=== PATIENT | female | born 1960 | race Hispanic/Latino ===

== ENCOUNTER 2018-06-17 17:06 | Inpatient (IN) | payer BC ==
[2018-06-17 18:20] LABS: #Eosinphils 0.1 thou/uL (0.0-0.7); #Lymphocytes 1.3 thou/uL (1.20-3.40); #Monocytes 0.4 thou/uL (0.11-0.59); #Neutrophils 3.1 thou/uL (1.40-6.50); %Basophils 0.3 % (0.0-1.0); %Eosinophils 2.1 % (0.0-10.0); %Monocytes 7.2 % (0.0-10.0); %Neutrophils 64.4 % (42.0-75.0); Hemoglobin 12.2 g/dL (12.0-16.0); Mean Corpuscular Hemoglobin 31.4 pg (27.0-31.0); Mean Corpuscular Volume 92.4 fL (78.0-98.0); Mean Platelet Volume 7.1 fL (7.4-10.4); Platelet Count 229 thou/uL (130-400); RBC Distribution Width 11.4 % (11.5-14.5); Red Blood Cell (RBC) Count 3.88 mill/uL (4.20-5.40); White Blood Cell (WBC) Count 4.9 thou/uL (4.8-10.8)
[2018-06-17 18:41] LABS: ALT (SGPT) 24 U/L (8-55); AST (SGOT) 24 U/L (5-34); Albumin 4.3 g/dL (3.5-5.0); Alkaline Phosphatase 115 U/L (40-150); Anion Gap 12 mmol/L (10-20); BUN (Urea Nitrogen) 14 mg/dL (9.8-20.1); Bilirubin, Total 0.4 mg/dL (0.2-1.2); Calc. Creatinine Clearance 0 mL/min (70-130); Calcium 9.6 mg/dL (7.8-10.44); Carbon Dioxide 25 mmol/L (22-29); Chloride 106 mmol/L (98-107); Estimated GFR-MDRD 82; Globulin 3.4 g/dL (2.4-3.5); Glucose 101 mg/dL (70-105); Potassium 4.1 mmol/L (3.5-5.1); Protein, Total 7.7 g/dL (6.0-8.3); Sodium 139 mmol/L (136-145)
--- NOTE | 2018-06-17 18:59 | RAD ---
TWO VIEWS RIGHT FEMUR: 06/17/18 COMPARISON: None. HISTORY: Fall with right hip pain. FINDINGS: Two views of the right femur shows no evidence of acute fracture or dislocation. No soft tissue swell ing is seen. No degenerative changes are present. IMPRESSION: No evidence of acute osseous abnormality. POS: [facility]
--- NOTE | 2018-06-17 19:01 | RAD ---
SINGLE VIEW OF THE CHEST: 06/17/18 COMPARISON: None. HISTORY: Right upper leg fracture. Chest pain . FINDINGS: Single view of the chest shows a normal sized cardiomediastinal silhouette. There is no evidence of c onsolidation, mass, or pleural effusion. The bones are unremarkable. IMPRESSION: No evidence of acute cardiopulmonary disease. POS: [facility]
[2018-06-17] MEDS ORDERED: Acetaminophen 325 MG TAB PO PRN (20:57)
[2018-06-17] MEDS: Atorvastatin Calcium 10 MG TAB PO SCH (21:05)
[2018-06-18] MEDS ORDERED: Ondansetron ODT 4 MG TAB PO PRN (00:11)
[2018-06-18] MEDS ORDERED: Ondansetron PF 4 MG/2 ML Vial IVP PRN (00:11)
[2018-06-18] MEDS ORDERED: Senokot S 8.6-50 MG TAB PO PRN (00:42)
[2018-06-18] MEDS ORDERED: Bisacodyl 5 MG TAB PO PRN (00:42)
[2018-06-18] MEDS ORDERED: Calcium Carbonate 500 MG ChewTAB PO PRN (00:42)
[2018-06-18 05:13] LABS: #Eosinphils 0.1 thou/uL (0.0-0.7); #Lymphocytes 1.7 thou/uL (1.20-3.40); #Monocytes 0.4 thou/uL (0.11-0.59); #Neutrophils 2.9 thou/uL (1.40-6.50); %Basophils 0.8 % (0.0-1.0); %Eosinophils 2.8 % (0.0-10.0); %Monocytes 7.4 % (0.0-10.0); Hemoglobin 12.7 g/dL (12.0-16.0); Mean Corpuscular HGB CONC 33.7 g/dL (32.0-36.0); Mean Corpuscular Hemoglobin 31.3 pg (27.0-31.0); Mean Platelet Volume 7.2 fL (7.4-10.4); Platelet Count 223 thou/uL (130-400); RBC Distribution Width 11.6 % (11.5-14.5); Red Blood Cell (RBC) Count 4.07 mill/uL (4.20-5.40); White Blood Cell (WBC) Count 5.1 thou/uL (4.8-10.8)
[2018-06-18] MEDS: Levothyroxine Sodium 100 MCG TAB PO SCH (05:40)
[2018-06-18 05:46] LABS: Anion Gap 13 mmol/L (10-20); BUN (Urea Nitrogen) 17 mg/dL (9.8-20.1); Calc. Creatinine Clearance 88 mL/min (70-130); Calcium 9.7 mg/dL (7.8-10.44); Carbon Dioxide 25 mmol/L (22-29); Chloride 107 mmol/L (98-107); Estimated GFR-MDRD 78; Glucose 97 mg/dL (70-105); Sodium 141 mmol/L (136-145)
[2018-06-18] MEDS ORDERED: Famotidine/PF 20 mg/2ml Vial SLOW IVP SCH (09:00)
--- NOTE | 2018-06-18 10:11 | HP ---
CHIEF COMPLAINT: Right hip pain and x-ray finding of lytic lesion in the setting of breast cancer history in the past. HISTORY OF PRESENT ILLNESS: The patient is a 57-year-old female, who fell recently on her right hip and sustained contusion of this hip. She presented to [facility] Emergency Room for evaluation of her hip pain. X-rays showed no fracture, but there was some lytic lesion to the right femur. Her oncologist was consulted and he requested to admit her to the hospital for workup of her possible metastatic disease. Orthopedic surgeon was called, Dr. Connor, who is consulted and Dr. Perez is consulted. At this point, the patient does not have any pain. She does not have much complaints to offer. Her surrogate decision maker is Brent Guerra, her , and her doctor is Dr. Canales, PCP. PAST MEDICAL HISTORY: Positive for, 1. Breast cancer in 2002 with lumpectomy and subsequent chemo and radiation therapy. 2. Hypothyroidism. 3. Hyperlipidemia. PAST SURGICAL HISTORY: Left mastectomy. SOCIAL HISTORY: She denies any alcohol intake, cigarette smoking, or illicit drug use. FAMILY HISTORY: Father when kids were very young and they do not know much about his . Mother had high blood pressure and she passed last year when she was 87 years old. ALLERGIES: NONE. CURRENT MEDICATIONS: 1. Atorvastatin 80 mg once a day. 2. Levothyroxine 100 mcg every morning. REVIEW OF SYSTEMS: CONSTITUTIONAL: Negative for fever and chills. EYES: Negative for eye pain and eye discharge. ENT: Negative for nasal congestion and epistaxis. CARDIOVASCULAR: Negative for chest pain and palpitations. RESPIRATORY: Negative for shortness of breath and cough. GASTROINTESTINAL: Negative for nausea and vomiting. MUSCULOSKELETAL: Positive for right hip pain on palpation. SKIN: Negative for erythema and rash. ENDOCRINE: Negative for polydipsia and polyuria. HEMOLYMPHATIC: Negative for easy bruising and clotting abnormalities. PSYCHIATRIC: Negative for suicidal and homicidal ideations. PHYSICAL EXAMINATION: VITAL SIGNS: Blood pressure is 138/72, pulse is 61, temperature is 98.0, respiratory rate is 16, O2 saturation is 97% on room air. HEENT: Her head is atraumatic and normocephalic. Eyes are PERRLA. Sclerae are nonicteric. Oral mucosa is moist. NECK: Supple. No lymphadenopathy. Thyroid is not palpable. LUNGS: Clear. HEART: S1, S2 normal. No S3. No S4. No any murmur. ABDOMEN: Soft, nontender, nondistended. Bowel sounds are present. No organomegaly. EXTREMITIES: No clubbing, cyanosis, or edema. NEUROLOGICAL EXAMINATION: She is alert and oriented x4. There is no any motor or sensory deficits present. Cranial nerves are intact. LABORATORY DATA: White count of 5.1, hemoglobin of 12.7, hematocrit 37.8, platelet count is 223,000. Normal chemistry. Chest x-ray did not show any acute abnormalities. This was personally reviewed by me, and x-ray of the femur did not show any abnormalities. IMPRESSION: 1. Right hip pain with radiographic finding of lytic lesion in the proximal femur in the setting of a cancer patient diagnosed with breast cancer in 2002, status post lumpectomy, and subsequent chemo and radiation therapy. 2. Hypothyroidism. 3. Hyperlipidemia. PLAN: Admission for observation. Condition is fair. Activity bedrest and bathroom privileges. IV Hep-Lock. CT of the chest, abdomen and pelvis with contrast. Consultants, Dr. Connor, Orthopedic Surgery and Dr. Perez, Oncology consultation. Continue home medications. DVT prophylaxis and the patient should be able to go home in the next 24 hours. Job ID: [id number]
[2018-06-18] MEDS: Famotidine 20 MG TAB PO SCH ×2 (10:30→20:39)
--- NOTE | 2018-06-18 11:50 | CT ---
CT CHEST WITH CONTRAST: CT ABDOMEN WITH CONTRAST: CT PELVIS WITH CONTRAST: HISTORY: Malignant process. Fall. Pain. FINDINGS: There is a large right lower lobe lung mass with central necrosis, measuring 2.9 x 3.8 x 5.7 cm. The re is post destructive pneumonitis in the right lower lobe. No pericardial effusion. No mediastinal adenopathy. No axillary adenopathy. There is an abnormal lytic focus within the T11 vertebral body, with extension along the posterior wa ll of the vertebral body, as well as extension along the lamina and pedicles. Abnormal lytic focus w ithin the right ilium. There are abnormal lytic foci throughout the sacrum, on the right, with a pat hologic fracture through the right sacrum, zone 2, without significant displacement. There are no dilated loops of large or small bowel. No free intraperitoneal gas or fluid. The liver, gallbladder, spleen, pancreas, and right adrenal gland are unremarkable. No hydronephrosi s. No abnormal renal enhancing mass. IMPRESSION: 1. Large right lower lobe mass, concerning for primary lung carcinoma. There is osseous metastatic disease involving the right ilium and sacrum, with a subtle pathologic fracture of the right sacrum, zone 2 of S1. 2. Metastatic focal involvement of the T11 vertebral body with anterior epidural extension. MRI may be helpful to evaluate for the extent of the epidural disease. 2. Osseous metastatic disease involving the posterior elements of T5 and T6, with likely epidural ex tension of tumor. The sound physician credit union manager was paged. CODE CR POS: [facility]
--- NOTE | 2018-06-18 14:49 | CON ---
DATE OF CONSULTATION: 06/18/2018 CHIEF COMPLAINT: Right hip pain. HISTORY OF PRESENT ILLNESS: Ms. Guerra is a 57-year-old female, who has a history of breast cancer 15 years ago. She was treated at that time with mastectomy, radiation, and chemotherapy. She has done very well since then with no recurrence of her cancer; however, she began having pain in her thigh and then fell on [address]. Since that time, she has had more severe pain and has been unable to ambulate and put pressure on her leg. She was seen in the [facility] by Dr. Perez and referred over to the emergency department. X-rays of her femur have shown a lytic lesion with possible pathologic fracture. PAST MEDICAL HISTORY: 1. Breast cancer in 2002 with lumpectomy and chemo and radiation therapy. 2. Hypothyroidism. 3. Hyperlipidemia. PAST SURGICAL HISTORY: Left breast lumpectomy. SOCIAL HISTORY: The patient denies tobacco, alcohol, or drug use. FAMILY MEDICAL HISTORY: Noncontributory. ALLERGIES: NONE. MEDICATIONS: 1. Atorvastatin. 2. Levothyroxine. REVIEW OF SYSTEMS: Positive for right leg pain when she ambulates, otherwise negative 10-point review of systems. IMAGING DATA: X-rays of the right femur demonstrate a lytic lesion of the proximal one-third of the femur eroding the cortex greater than 50% on the lateral aspect. IMPRESSION: Lytic lesion of femur in a patient with history of breast cancer in 2002. PHYSICAL EXAMINATION: VITAL SIGNS: Stable. Blood pressure is 138/70, pulse is 65, and temperature is 98.0. GENERAL: She is alert, sitting upright, in no apparent distress. RESPIRATORY: Breathing comfortably. HEENT: Normocephalic and atraumatic. ABDOMEN: Soft, nontender, and nondistended. MUSCULOSKELETAL: The patient's right leg has some pain with motion, although, minimal. No swelling. No ecchymosis. Neurovascularly intact. PLAN: At this point, the patient will have workup for her lytic lesion including CT scan of the chest, abdomen, and pelvis. It is most likely that the patient has metastatic breast cancer given her history. If this continues to be the case after imaging and laboratory studies, I would plan for intramedullary nail of the femur to restore strength to the femur and allow immobilization and prevent fracture. She would likely need radiation treatment of her lytic lesion as well. I will proceed with this tomorrow if everyone agrees that this represents a metastatic lesion rather than a primary bone tumor, which would be very unlikely. Job ID: [id number]
--- NOTE | 2018-06-18 15:26 | NM ---
RADIONUCLIDE BONE SCAN: Date: 06/18/18 HISTORY: Femoral bone lesion. Metastatic cancer. FINDINGS: Heterogeneously increased uptake is present along the lateral aspect of the proximal right femoral sh aft. Abnormal areas of uptake also involve the right side of the S1 vertebral level and the right sup raacetabular pelvis. Prominent increased uptake is present at the T11 vertebral level. There is also abnormally increased uptake involving the T5 and T6 vertebra and the right side of the T7 vertebra, p ossibly the base of the right 7th rib. Focus of activity overlies the left zygomatic arch. IMPRESSION: Osseous metastatic disease involving the thoracic spine, pelvis, left hip, and left zygomatic arch. POS: [facility]
[2018-06-18] MEDS: Atorvastatin Calcium 10 MG TAB PO SCH (20:40)
[2018-06-19] MEDS: Levothyroxine Sodium 100 MCG TAB PO SCH (05:33)
[2018-06-19] MEDS ORDERED: CEFAZOLIN 2 GM/50 ML BAG ONE (06:29)
[2018-06-19] MEDS ORDERED: CEFAZOLIN 2 GM/50 ML-DEXTROSE 2 GM in Premix Bag 1 BAG IVPB SCH (07:30)
[2018-06-19] MEDS ORDERED: CEFAZOLIN/Water 2 GM/20 ML SYRINGE SLOW IVP SCH ×2 (07:30→11:45)
[2018-06-19] MEDS ORDERED: Fentanyl 100 MCG/2 ML VIAL ONE ×4 (07:53→10:06)
--- NOTE | 2018-06-19 10:19 | RAD ---
INTRAOPERATIVE FLUOROSCOPIC RIGHT FEMUR SERIES 5 VIEWS PROVIDED: INDICATION: Intraoperative imaging for intramedullary nail placement of right femur. FINDINGS/IMPRESSION: Segmental imaging of the right femur reveals placement of intramedullary maria teresa with proximal and distal screw fixation. Detail is limited on the provided views. POS: [facility]
[2018-06-19] MEDS: Famotidine 20 MG TAB PO SCH ×2 (11:27→20:43)
[2018-06-19] MEDS ORDERED: HYDROcodone/Acetaminophen 5/325 mg Tablet PO PRN (12:01)
[2018-06-19] MEDS ORDERED: HYDROcodone/Acetaminophen 10/325 mg Tablet PO PRN (12:02)
[2018-06-19] MEDS ORDERED: Morphine 4 MG/ML VIAL SLOW IVP PRN (12:03)
[2018-06-19] MEDS: HYDROcodone/Acetaminophen 10/325 mg Tablet PO PRN ×2 (12:39→16:28)
[2018-06-19] MEDS: CEFAZOLIN 2 GM/50 ML-DEXTROSE 2 GM in Premix Bag 1 BAG IVPB SCH ×2 (12:39→20:42)
--- NOTE | 2018-06-19 15:27 | OP ---
DATE OF PROCEDURE: 06/19/2018 PROCEDURES PERFORMED: 1. Right femur intramedullary nail. 2. Right femoral metastatic lesion biopsy. PREOPERATIVE DIAGNOSIS: Right femoral metastatic lesion with pathologic fracture. POSTOPERATIVE DIAGNOSIS: Right femoral metastatic lesion with pathologic fracture. COMPLICATIONS: None. ESTIMATED BLOOD LOSS: 150 mL. ANESTHESIA: General. IMPLANTS: Synthes 380 mm x 10 mm antegrade femoral nail with Crosslock screws. INDICATIONS FOR PROCEDURE: Ms. Guerra is a 57-year-old female, who has a remote history of breast cancer. She fell recently and a pathologic lesion and fracture was found in her femur. Upon further workup, she has been found to have metastatic disease. She was indicated for femoral nail to restore stability and strength to the femoral bone. I also talked to her about sending a pathologic specimen for definitive diagnosis of her metastatic disease. DESCRIPTION OF PROCEDURE: Ms. Guerra was identified in the preoperative holding area. Her correct extremity was marked. She was carried to the operating room. She was positioned supine. General anesthesia was induced. She was rolled to the lateral position. At this point, we identified the lesion on intraoperative x-ray. We then made a small incision over the lateral aspect of the thigh. We dissected down through the subcutaneous tissues and split the IT band. We were then able to expose the femoral cortex. We made a drill hole with a 4.5 mm drill. We then used a curette to remove tissue from within the bone. This was abnormal in appearance suggestive of tumor tissue. This was sent for a permanent specimen. At this point, we thoroughly irrigated this wound and closed in layers. Next, we made a small incision proximal to the greater trochanter. We then dissected down and inserted our guidewire into the piriformis fossa. This was guided by intraoperative x-ray. We overdrilled the guidewire. We then inserted our ball-tipped guidewire from proximal to distal. Next, we over-reamed the guidewire and then placed our 10 mm x 380 mm nail. This was seated using intraoperative x-ray. We placed a proximal Crosslock screw followed by distal Crosslock screw. At this point, we took final x-ray images. We then closed all wounds. A sterile dressing was applied. The patient was taken to the recovery room in good condition without complication. Job ID: [id number]
--- NOTE | 2018-06-19 19:08 | PDOC.PN ---
- Subjective Encounter Start Date: 06/19/18 Encounter Start Time: 15:00 Subjective: Patient seen postoperatively following IM nailing pathologic fracture right -: femur. Her daughter is at bedside. Patient moaning occasionally, no N/V. -: Pain medications added to postop orders - Objective Vital Signs & Weight: Vital Signs (12 hours) Temp Pulse Resp BP BP BP Pulse Ox 06/19/18 16:10 64 16 126/74 94 L 06/19/18 15:10 65 16 126/71 97 06/19/18 14:10 67 14 144/80 H 95 06/19/18 13:10 59 L 14 144/73 H 98 06/19/18 12:10 58 L 14 138/73 99 06/19/18 11:40 67 16 151/79 H 98 06/19/18 11:10 65 18 125/77 99 06/19/18 10:40 98.8 F 73 18 117/70 94 L Weight Weight 149 lb 9 oz I&O: 06/18/18 06/19/18 06/20/18 06:59 06:59 06:59 Intake Total 310 640 720 Output Total 500 Balance -190 640 720 Result Diagrams: 06/18/18 04:21 06/18/18 04:21 Phys Exam - Physical Examination Resting comfortably presently HEENT: moist MMs Neck: supple, full ROM Respiratory: clear to auscultation bilateral Cardiovascular: RRR Gastrointestinal: soft, non-tender Musculoskeletal: no edema Neurological: non-focal, moves all 4 limbs Psychiatric: A&O x 3 Deviation from normal: Sleepy but will awaken and respond correctly to questions Skin: no rash Dx/Plan (1) Pathological fracture of right femur Code(s): M84.451A - PATHOLOGICAL FRACTURE, RIGHT FEMUR, INIT ENCNTR FOR FRACTURE Status: Acute Comment: Bone pathology specimen sent, pending (2) Hypothyroid Code(s): E03.9 - HYPOTHYROIDISM, UNSPECIFIED Status: Chronic (3) Pneumonia Code(s): J18.9 - PNEUMONIA, UNSPECIFIED ORGANISM Status: Acute Comment: Post -obstructive, lung mass present on CT scan. Initiate levaquin (received Rocephin today) (4) Dyslipidemia Code(s): E78.5 - HYPERLIPIDEMIA, UNSPECIFIED Status: Chronic (5) History of breast cancer Code(s): Z85.3 - PERSONAL HISTORY OF MALIGNANT NEOPLASM OF BREAST Status: Chronic (6) Postoperative pain Code(s): G89.18 - OTHER ACUTE POSTPROCEDURAL PAIN Status: Acute Comment: Stepwise pain control - Plan * Patient high risk based on comorbidities/need for IV analgesics and monitoring * Heme/Onc - Dr. Perez consulted. Await bone biopsy - metastatic disease, breast cancer recurrence versus new primary, lung is suspicious * Pulm - Initiate levaquin * PT/OT, mobilize post op * DVT prophylaxis - lovenox * Postop pain control
[2018-06-19] MEDS ORDERED: Glycopyrrolate 0.2 MG/ML 5 ML SYRINGE ONE (20:07)
[2018-06-19] MEDS ORDERED: Ondansetron PF 4 MG/2 ML Vial ONE (20:07)
[2018-06-19] MEDS ORDERED: PROPOFOL 200 MG/20 ML VIAL ONE (20:07)
[2018-06-19] MEDS ORDERED: PHENYLEPHRINE-NS 100 MCG/ML 10 ML SYRINGE ONE (20:07)
[2018-06-19] MEDS ORDERED: Dexamethasone 20 MG/5 ML VIAL ONE (20:07)
[2018-06-19] MEDS: Atorvastatin Calcium 10 MG TAB PO SCH (20:43)
--- NOTE | 2018-06-20 01:23 | CON ---
DATE OF CONSULTATION: 06/19/2018 SERVICE: Pulmonary Medicine. REASON FOR CONSULT: Pulmonary mass. HISTORY OF PRESENT ILLNESS: The patient is a 57-year-old female with past medical history significant for breast cancer. She was in her usual state of health until she presented to the clinic with hip pain. An x-ray finding did demonstrate a lytic lesion. Ultimately, during the course of the investigation, pulmonary mass was identified. It was felt that the lytic lesion could be associated with her known breast cancer. That being said, the lesion in the chest was felt to be a second lesion, probably not associated with breast cancer. As such, I was asked to help identify what this could represent. I was going to do the bronchoscopy this morning, but she was already in the operating room under anesthesia I could not consent her. As such, we are going to have to plan for the procedure in the morning. She denies having any shortness of breath, hemoptysis, nausea, vomiting, fevers or chills. She is not coughing up any sputum. Otherwise, her breathing is at baseline. PAST MEDICAL HISTORY: 1. Breast cancer in 2002, status post lumpectomy and chemoradiation therapy. 2. Hypothyroidism. 3. Dyslipidemia. PAST SURGICAL HISTORY: 1. Mastectomy on the left. 2. Right femur intramedullary nail with intraoperative biopsy. SOCIAL HISTORY: Negative for alcohol, tobacco, or illicit drug use. She has no exposure to chemicals, dust, asbestos, or tuberculosis. FAMILY HISTORY: Noncontributory. ALLERGIES: NO KNOWN DRUG ALLERGIES. MEDICATIONS: List of her inpatient medications was reviewed. No specific updates were made at this time. REVIEW OF SYSTEMS: General, head, ears, eyes, nose, throat, cardiovascular, respiratory, GI, , musculoskeletal, neurologic, and skin is negative except as mentioned in the HPI. PHYSICAL EXAMINATION: VITAL SIGNS: Afebrile, pulse 64, blood pressure 126/74, respirations 16, and saturation 94% on room air. GENERAL: The patient is awake and alert, in no apparent distress. LUNGS: Excellent air entry. There is no prolonged expiratory phase or wheezing present. HEART: Normal rate regular. ABDOMEN: Soft, nontender, and nondistended. Bowel sounds are positive. MUSCULOSKELETAL: No cyanosis or clubbing. There is no pitting in the bilateral lower extremities. NEUROLOGIC: Grossly nonfocal. LABORATORY DATA: WBC 5.1, hemoglobin 12.7, platelets 223,000. Basic metabolic profile and liver function studies are essentially unremarkable. IMAGING: Bone scan demonstrates osseous metastatic disease involving the thoracic spine, pelvis, left hip, and left zygomatic arch. CT of the chest, abdomen, and pelvis demonstrates a large right lower lobe mass concerning for primary cancer. Osseous metastatic disease is otherwise once again appreciated. ASSESSMENT: 1. History of breast cancer. 2. Pulmonary mass. 3. Widely metastatic skeletal disease. DISCUSSION AND PLAN: We are going to go down for bronchoscopy tomorrow as there is a thought the pulmonary lesion could represent a second malignancy. Pulmonary Critical Care will continue to follow along until pathology results. There is endobronchial disease identified on this study. As such, my suspicion is, we will be able to take a reliable sample. The question is whether or not it is going to be necrotic, however. Job ID: [id number]
[2018-06-20] MEDS: Levothyroxine Sodium 100 MCG TAB PO SCH (05:24)
[2018-06-20 06:11] VITALS: BMI 23.9
[2018-06-20 06:45] LABS: #Lymphocytes 1.6 thou/uL (1.20-3.40); #Monocytes 0.5 thou/uL (0.11-0.59); #Neutrophils 4.4 thou/uL (1.40-6.50); %Basophils 0.2 % (0.0-1.0); %Eosinophils 0.3 % (0.0-10.0); %Lymphocytes 24.3 % (21.0-51.0); %Monocytes 7.5 % (0.0-10.0); %Neutrophils 67.7 % (42.0-75.0); Hemoglobin 11.5 g/dL (12.0-16.0); Mean Corpuscular HGB CONC 34.4 g/dL (32.0-36.0); Mean Corpuscular Hemoglobin 31.7 pg (27.0-31.0); Mean Corpuscular Volume 92.4 fL (78.0-98.0); Mean Platelet Volume 7.1 fL (7.4-10.4); Platelet Count 220 thou/uL (130-400); RBC Distribution Width 11.4 % (11.5-14.5); Red Blood Cell (RBC) Count 3.63 mill/uL (4.20-5.40); White Blood Cell (WBC) Count 6.5 thou/uL (4.8-10.8)
[2018-06-20 07:03] LABS: ALT (SGPT) 17 U/L (8-55); AST (SGOT) 21 U/L (5-34); Albumin 3.8 g/dL (3.5-5.0); Alkaline Phosphatase 100 U/L (40-150); Anion Gap 11 mmol/L (10-20); BUN (Urea Nitrogen) 20 mg/dL (9.8-20.1); Bilirubin, Total 0.6 mg/dL (0.2-1.2); Calc. Creatinine Clearance 86 mL/min (70-130); Calcium 9.3 mg/dL (7.8-10.44); Carbon Dioxide 26 mmol/L (22-29); Chloride 105 mmol/L (98-107); Estimated GFR-MDRD 75; Globulin 3.2 g/dL (2.4-3.5); Glucose 104 mg/dL (70-105); Magnesium 2.1 mg/dL (1.6-2.6); Phosphorus 3.5 mg/dL (2.3-4.7); Potassium 4.1 mmol/L (3.5-5.1); Sodium 138 mmol/L (136-145)
[2018-06-20] MEDS: HYDROcodone/Acetaminophen 10/325 mg Tablet PO PRN ×2 (08:46→12:18)
[2018-06-20] MEDS: Famotidine 20 MG TAB PO SCH ×2 (08:47→20:45)
[2018-06-20] MEDS ORDERED: Propofol 500 MG/50 ML VIAL ONE (09:39)
[2018-06-20] MEDS ORDERED: Fentanyl 100 MCG/2 ML VIAL ONE (09:39)
[2018-06-20] MEDS ORDERED: KETAMINE 100 MG/ML (5ML VIAL) ONE (09:39)
[2018-06-20] MEDS ORDERED: EPINEPHrine 1 MG/ML AMP ONE (10:24)
[2018-06-20] MEDS ORDERED: Sterile Water 10 ML ONE (10:24)
[2018-06-20] MEDS ORDERED: Meperidine HCl/PF 25 MG/ML VIAL SLOW IVP PRN (10:49)
[2018-06-20] MEDS ORDERED: Promethazine HCl 25 MG/ML VIAL IM PRN (10:49)
[2018-06-20] MEDS ORDERED: HYDROmorphone 2 MG/ML VIAL SLOW IVP PRN (10:49)
[2018-06-20] MEDS ORDERED: Promethazine HCl 25 MG/ML VIAL SLOW IVP PRN (10:49)
[2018-06-20] MEDS ORDERED: Sodium Chloride For Inhalation 0.9% 3 ML NEB ONE (11:18)
[2018-06-20] MEDS ORDERED: Lidocaine 2% 10 ML INJ ONE (11:19)
--- NOTE | 2018-06-20 14:00 | PRG ---
DATE OF SERVICE: 06/20/2018 SERVICE: Pulmonary Medicine. INTERVAL HISTORY: The patient is doing really well from respiratory standpoint. She is breathing comfortably. She is going down for bronchoscopy today. Otherwise, there has been no interval change to her condition. PHYSICAL EXAMINATION: VITAL SIGNS: Afebrile, pulse 60, blood pressure 119/65, respirations 14, saturation 98% on room air. GENERAL: The patient is awake and alert, in no apparent distress. LUNGS: Decent air entry. There is no prolonged expiratory phase, wheezing, rhonchi, or crackles present. HEART: Normal rate and regular. ABDOMEN: Soft, nontender, and nondistended. Bowel sounds are positive. MUSCULOSKELETAL: No cyanosis or clubbing. No pitting in the bilateral lower extremities. NEUROLOGIC: Grossly nonfocal. LABORATORY DATA: WBC 6.5, hemoglobin 11.5, platelets 220,000. Basic metabolic profile and liver function studies are otherwise unremarkable. ASSESSMENT: 1. History of breast cancer. 2. Pulmonary mass. 3. Widely metastatic skeletal disease. 4. Femur bone biopsy. DISCUSSION AND PLAN: We will proceed with bronchoscopy. I will continue to follow along, intermittently during this hospital stay until pathology results. From a purely lung perspective, she can be transitioned out of the hospital after the sample is collected. Job ID: [id number]
[2018-06-20] MEDS: Enoxaparin Sodium 40 MG/0.4 ML SYRINGE SC SCH (15:22)
--- NOTE | 2018-06-20 15:23 | CON ---
DATE OF CONSULTATION: 06/19/2018 REASON FOR CONSULTATION: Ms. Guerra is a 57-year-old female, who appears to have bone metastasis. I was asked to see her for consideration of radiation therapy. HISTORY OF PRESENT ILLNESS: Ms. Guerra is actually diagnosed with breast cancer in February 2003. 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 She was treated with breast conservative therapy. She also got adjuvant chemotherapy. Radiation was completed in 2003. Presumably, she took an antiestrogen medication for 5 years afterwards , although I do not have record of that. She has subsequently then lost to follow up with us. She apparently had a recent fall and after her fall, began experiencing pain in the right leg. She was seen in the emergency room where a plain film x- ray was obtained, which showed a lytic lesion in the proximal right femur. She was admitted to the hospital for workup and evaluation after seeing Dr. Perez. She did have a CT scan of the chest, abdomen, and pelvis as well as a bone scan performed, which showed several other areas of bone metastasis. She had a mass on the right lower lobe with a lung. Because of impending pathological fracture, this morning she underwent nailing of the right femur by Dr. Connor. Pathology is currently pending from that. I have been asked to see her for consideration of radiation therapy. Presently, she denies any other areas of pain. She has no numbness in the feet and denies any arm or leg weakness prior to her fall. She has no difficulty emptying her bowel or bladder. She has had no breast problems and denies any shortness of breath. She voices no other complaints. PAST MEDICAL HISTORY: 1. Breast cancer in 2002 with pathological stage 2, T2 N0 M0 disease. Her tumor was estrogen-progesterone receptor positive and HER2 receptor negative. She did receive chemotherapy and radiation as part of her breast conservative therapy. 2. Hypothyroidism. 3. Hypercholesterolemia. 4. She denies other medical or surgical problems. MEDICATIONS: 1. Atorvastatin. 2. Levothyroxine. ALLERGIES: NO KNOWN MEDICAL ALLERGIES. SOCIAL HISTORY: She has no cigarette or alcohol use. She lives in [place], [place] with her . Her daughter is with her today in the room. She works as a housewife. FAMILY HISTORY: Her mother passed last year at age 87 with high blood pressure. Her father when he was young of unknown causes. There is no family history of breast cancer or other malignancies. REVIEW OF SYSTEMS: 12 system review of systems is otherwise negative. PHYSICAL EXAMINATION: VITAL SIGNS: Height 5 feet 7 inches, weight 149 pounds, blood pressure 117/70, pulse 73, respirations 18, temperature 98.8, O2 saturation is 94%. GENERAL: She is alert and oriented and in no apparent distress. She is well-developed and well-nourished. Karnofsky performance status is 90%. EYES: Pupils are equal, round, and reactive to light. Extraocular movements are intact. ENT: Oral cavity and oropharynx without lesion or erythema. Palate elevates symmetrically. Gingiva is intact. NECK: Supple without cervical or supraclavicular adenopathy. No thyromegaly. Larynx midline. LUNGS: Breathing nonlabored. Clear to auscultation anteriorly. HEART: Regular rate and rhythm without murmur. EXTREMITIES: No lower extremity edema. LYMPHATIC: No axillary or inguinal adenopathy. ABDOMEN: Bowel sounds present. Soft, nontender, nondistended without mass or hepatosplenomegaly. Liver percusses to normal size. SKIN: Without rash or purpura. NEUROLOGIC: Cranial nerves 2 through 12 grossly intact. Motor strength is 5/5 in both upper and lower extremities in all muscle groups tested. I did not test her strength at her right hip, but distally in her right extremity, her strength is good. Sensation appears intact. Gait was not tested. LABORATORY DATA: CBC: Revealed a white blood cell count of 5100 with hemoglobin of 12.7, hematocrit of 37.8, platelet count of 223,000. Chemistry group showed normal electrolytes. Her calcium was normal at 9.7 and albumin was normal at 4.3. Liver function tests were normal. Pathology from her surgery this morning is pending. IMAGING STUDIES: CT scan of the chest, abdomen, and pelvis; bone scan; plain film x-rays of her femur were all personally reviewed. Bone scan shows multiple areas consistent with metastasis. This includes the right proximal femur and several areas in the spine. Plain film x-ray of the right femur shows a lytic lesion in the proximal right femur just below the lesser trochanter. CT of the chest, abdomen , and pelvis does show a mass in the right lower lobe of the lung. This measures 5.7 cm in greatest dimension. She has multiple areas of bone metastasis including T5 and T6 as well as T11 and the right sacrum. There appears to be a pathologic fracture in the right sacrum, which is nondisplaced. She has possible epidural encroachment at T5 and T6 as well as in T11. ASSESSMENT: Ms. Guerra is a 57-year-old female with what appears to be bone metastasis. This could possibly represent recurrence of her breast cancer even though her breast cancer initially was diagnosed and treated 15 years ago. Other possibility would be a new cancer such as a lung cancer since she does have a lung mass. Pathology from the surgery this morning is currently pending. Of concern is that she does have some epidural encroachment in the thoracic spine area by CT scan, which needs to be further characterized. PLAN: Presently, she does not have any signs or symptoms of spinal cord compression. Nevertheless, the epidural encroachment on her CT scan needs to be further evaluated. She will need an MRI of the thoracic spine when clinically she is able to do this. She is not able to do this today or likely in the next several days because she is immediately postop from her nailing of her femur. Hopefully , we can get the MRI of the thoracic spine on Friday to further evaluate this. We will need to get to Pathology before determining the complete treatment course. She will need postoperative radiation therapy to the right femur once she has healed from her surgery. The logistics of radiation as well as the benefits and risks of treatment were discussed. Side effects would include, but not be limited to skin rash, fatigue, lower blood counts, swelling of the extremity, and long-term side effects from her radiation. She could possibly need radiation therapy to additional areas. This will depend on the pathology and also on the results of her MRI of the thoracic spine. I will continue to follow her with you. We will check on her on Friday and hopefully, she can have the MRI of the thoracic spine at that time. If consideration is to be given to discharge prior to Friday, would be most helpful with an MRI of thoracic spine could be obtained before her discharge. Thank you for this interesting consultation. Job ID: [id number] [facility]
--- NOTE | 2018-06-20 16:25 | PDOC.PN ---
- Subjective Encounter Start Date: 06/20/18 Encounter Start Time: 13:00 Not yet out of bed following surgery. States pain is "ok", 4/, right leg. Breathing without difficulty after bronch today. Appetite present. Family not presently in the room. Patient understands she might have a second new cancer in the lung. - Objective Vital Signs & Weight: Vital Signs (12 hours) Temp Pulse Resp BP Pulse Ox 06/20/18 07:59 98.6 F 60 14 119/65 98 06/20/18 04:48 98.6 F 55 L 20 107/60 98 Weight Weight 153 lb I&O: 06/19/18 06/20/18 06/21/18 06:59 06:59 06:59 Intake Total 640 1400 Balance 640 1400 Result Diagrams: 06/20/18 06:32 06/20/18 06:32 Phys Exam - Physical Examination Constitutional: NAD HEENT: moist MMs, oral pharynx no lesions Neck: supple, full ROM Respiratory: no wheezing, no rales Cardiovascular: RRR Gastrointestinal: soft, non-tender Musculoskeletal: no edema Surgical site clean Neurological: non-focal, moves all 4 limbs Psychiatric: normal affect, A&O x 3 Skin: no rash Dx/Plan (1) Pathological fracture of right femur Code(s): M84.451A - PATHOLOGICAL FRACTURE, RIGHT FEMUR, INIT ENCNTR FOR FRACTURE Status: Acute Comment: Bone pathology specimen sent, pending. POD #1 (2) Hypothyroid Code(s): E03.9 - HYPOTHYROIDISM, UNSPECIFIED Status: Chronic (3) Pneumonia Code(s): J18.9 - PNEUMONIA, UNSPECIFIED ORGANISM Status: Acute Comment: Post -obstructive, lung mass present on CT scan. Initiate levaquin (received Rocephin today). s/p bronch today, 06/20. Discussed with Dr. Huffman. Pathology pending. (4) Dyslipidemia Code(s): E78.5 - HYPERLIPIDEMIA, UNSPECIFIED Status: Chronic (5) History of breast cancer Code(s): Z85.3 - PERSONAL HISTORY OF MALIGNANT NEOPLASM OF BREAST Status: Chronic (6) Postoperative pain Code(s): G89.18 - OTHER ACUTE POSTPROCEDURAL PAIN Status: Acute Comment: Stepwise pain control - Plan * Case discussed with Dr. Connor --> proceed with PT/OT, orders entered * Case discussed with Dr. Huffman --> From pulmonary standpoint, home anytime. * I discussed with patient that she will see Dr. Perez in office to discuss options. * OOB/Mobilize, then home soon (maybe tomorrow?) with outpt Onc followup
--- NOTE | 2018-06-20 18:33 | MRI ---
MRI THORACIC SPINE WITH AND WITHOUT CONTRAST: 06/20/18 HISTORY: T11 metastases with possible compromise of the central spinal canal. Evaluate for central canal steno sis as well as epidural extension. COMPARISON: None. CORRELATION: CT chest, abdomen and pelvis, 06/18/18. TECHNIQUE: Thoracic spine MRI is performed with and without intravenous gadolinium administration. Multisequenti al, multiplanar imaging is performed. FINDINGS: There is abnormal T1 narrow signal intensity with associated T2 and STIR hyperintensity involving the posterior T5 vertebral body with extension to both pedicle and the T5 spinous process. Additionally, there is abnormal signal intensity involving the left and right pedicle at T6 along with the T6 spin ous process. There is similar signal intensity involving the left pedicle at T7. Abnormal signal inte nsity on the posterior margin of T11 with extension to both pedicles and the spinous process is also noted. On the postcontrast images, there does appear to be components of epidural extension anteriorl y and posteriorly at T11. Visualized mediastinal structures are unremarkable. There is consolidation in both lower lobes right greater than left. The visualized solid organs are unremarkable. The thoracic cord has a normal size and signal intensity. No cord expansion. No cord malacia. No T2 hyperintensity in the cord. There is no abnormal cord enhancement. Conus medullaris terminates at the upper aspect of L1. On the sagittal postcontrast images there does appear to be some abnormal enhancement along the posterior margin of the dura from T4 to T6 as well as T10 and T11. Throughout the thoracic spine, there is no significant central canal stenosis with the exception of T 11. At T11, there is moderate central canal stenosis secondary to anterior and posterior extension of tumor. Mild bilateral foraminal narrowing at T10-T11 and T11-T12. Otherwise, no significant compromi se of the neural foramina. IMPRESSION: 1. Osseous metastases at T5, T6, and T7. There is evidence of enhancement of the posterior dural margin from T4 through T7 without canal compromise. 2. Osseous metastases at T11. There is moderate central canal stenosis secondary to anterior and posterior extension of tumor, along the anterior and posterior epidural margins. 3. No signal abnormality within the thoracic cord. 4. Consolidation in both lower lobes is presumed to be due to atelectasis versus neoplasm. Refer to recent CT for further detail. POS: [facility]
--- NOTE | 2018-06-20 18:49 | MRI ---
MRI OF THE LUMBAR SPINE WITH AND WITHOUT CONTRAST MRI OF THE SACRUM WITH AND WITHOUT CONTRAST 06/20/18 HISTORY: Osseous metastases. COMPARISON: None. CORRELATION: CT chest, abdomen and pelvis 06/18/18. FINDINGS: There is no abnormal enhancement or abnormal signal intensity of the lumbar vertebrae. Lumbar spine v ertebral body height is maintained. There is no fracture. Symmetric signal intensity of the psoas muscles. The visualized solid organs have appropriate signal intensity. The conus medullaris terminates at the L1 level. No abnormal enhancement of the conus medullaris, or cauda equina. There is abnormal signal intensity involving the S1 vertebral body and S2 vertebral body. Additionall y, there is abnormal signal intensity involving the right iliac wing. Based on the coronal images, sa cral foramina appear to be preserved. Specifically, fat signal intensity is noted. On the postcontras t images, there does appear to be enhancement involving the left S1 nerve root within the neural fora men. No additional abnormal enhancement of the sacral plexus is appreciated. T12-L1: No significant central canal stenosis or foraminal narrowing. L1-L2: Adequate disc hydration. No significant central canal stenosis or foraminal narrowing. L2-L3: Mild loss of disc space height. No significant central canal stenosis. Neural foramina are pat ent. L3-L4: Adequate disc hydration. No significant central canal stenosis. neural foramina are patent. L4-L5: Desiccation with mild loss of disc space height. There is a generalized disc bulge with a T2 a nd STIR hyperintensity suggesting an annular fissure. There is associated subtle enhancement. Mild ce ntral canal stenosis. Neural foramina are patent. L5-S1: Mild loss of disc space height and mild disc desiccation. There is a generalized disc bulge wi th a small midline posterior annular T2 and STIR hyperintense lesion with associated enhancement. Sma ll annular fissure is favored. There is mild central canal stenosis. At the mid S1 level, there does appear to be narrowing of the right subarticular zone secondary to yovanny ny expansion from metastatic involvement. There is some mass effect and partial obscuration of the tr aversing right S1 nerve root. IMPRESSION: Osseous metastasis involving the sacrum and right iliac bone. There is mild narrowing of the right vasquez barticular zone at the upper aspect of S1. There is partial obscuration of the traversing right S1 ne rve root before exiting the right S1 neural foramen. Overall, sacrum and neural foramina are patent a nd there is no evidence of high grade obscuration of the sacral plexus. Nevertheless, there does appe ar to be focal enhancement involving the left S1 nerve root, worrisome for possible metastatic involv ement. POS: [facility]
--- NOTE | 2018-06-20 20:17 | CON ---
DATE OF CONSULTATION: 06/18/2018 REASON FOR CONSULTATION: Metastatic cancer. HISTORY OF PRESENT ILLNESS: A 57-year-old female with history of stage IIA estrogen receptor positive cancer of the left breast, status post breast conservation therapy, chemotherapy, and 5 years of tamoxifen in 2002 presenting to the hospital with a new lytic lesion in the right femur. The patient has recently had a fall and had pain in her right femur for the last few days prior to admission and went to [facility] and had an x-ray of the femur, which showed a lytic lesion. She then saw Dr. Perez, who sent her to the hospital for admission and further workup. The patient states that her pain is on her right upper leg, wrapping around to the back of her leg and pain is only on standing and walking without any pain with lying down. She denies pain in any other locations. Denies fever, shortness of breath, cough, weight loss, nausea, vomiting, diarrhea, or constipation. She otherwise feels well. CT scan of the chest, abdomen, and pelvis dated June 18, 2018, shows a large right lower lobe mass concerning for primary lung carcinoma and osseous metastatic disease involving the right ilium and sacrum with subtle pathologic fracture of right sacrum, also metastatic focal involvement of the T11 vertebral body with anterior epidural extension. Dr. Connor from Orthopedics has been consulted to see the patient. REVIEW OF SYSTEMS: 10-point review of systems negative except as per HPI. PAST MEDICAL HISTORY: 1. Breast cancer in 2002, status post lumpectomy, chemotherapy, radiation, and tamoxifen. 2. Hypothyroidism. 3. Hyperlipidemia. PAST SURGICAL HISTORY: Left lumpectomy. SOCIAL HISTORY: No cigarettes, alcohol, or illicit drugs. FAMILY HISTORY: Unknown cancer history in her family. ALLERGIES: NONE. CURRENT MEDICATIONS: Reviewed. PHYSICAL EXAMINATION: VITAL SIGNS: Temperature 98.6, pulse 60, respirations 16, saturating 95% on room air, blood pressure 129/66. GENERAL APPEARANCE: The patient is lying in bed, in no acute distress. HEENT: Normocephalic, atraumatic. No scleral icterus. NECK: Supple without palpable lymphadenopathy. LUNGS: Clear to auscultation bilaterally. CARDIAC: S1 and S2 with regular rhythm and rate without murmurs, rubs, or gallops. ABDOMEN: Soft, nondistended, and nontender. EXTREMITIES: No edema and moves all extremities. NEUROLOGICAL: Cranial nerves 2 through 12 are grossly intact and otherwise nonfocal. MUSCULOSKELETAL: Mild tenderness to palpation of right upper lateral and posterior thigh, current insertion of the femur and the hip socket. The patient does have full range of motion, but it is painful when she moves it. LYMPHATICS: No palpable lymphadenopathy. LABORATORY DATA: White blood cells 5.1, hemoglobin 12.7, and platelets 223. Sodium 141, potassium 4.0, BUN 17, and creatinine 0.76. AST 24, ALT 24, alkaline phosphatase 115, bilirubin 0.4. IMAGING DATA: CT chest, abdomen, and pelvis with contrast dated June 03, 2018, shows a large right lower lobe lung mass with central necrosis measuring 2.9 x 3.8 x 5.7 cm. There is an abnormal lytic focus within T11 vertebral body with extension along the posterior wall as well as extension along the lamina pedicles. Abnormal lytic focus in the right ilium and abnormal lytic foci throughout the sacrum on the right with a pathologic fracture through right sacrum and two without significant displacement. There is osseous metastatic disease involving the posterior elements of T5 and T6 with likely epidural extension of tumor. ASSESSMENT AND PLAN: A 57-year-old female with history of estrogen receptor positive, stage IIA breast cancer on the left side in 2003, status post breast conservation therapy, chemotherapy, and tamoxifen x5 years, in remission and now presenting with lytic lesion in the right femur and found to have diffuse metastatic disease in the lungs and bones on CAT scan. Dr. Connor has been consulted for possible surgical options for the right femur, and I will consult Dr. Huffman for potential bronchoscopy for lung biopsy of the mass. Due to the T5, T6, T11, and sickle lesions with possible epidural extension, we would recommend MRI of the spine for better evaluation. However, the patient does not have any acute signs or symptoms of cord compression at this time. The patient may have recurrence of her breast cancer, though this may also be a new primary lung cancer. Given that the patient is a nonsmoker, if this is primary lung cancer, she would have a better chance of being eGFR positive or positive for other activating mutations and prognosis would be much better if this were the case. We will follow up biopsy results and I will also consult Dr. Ibarra for palliative radiation to the right femur. Thank you for this consult. Job ID: [id number]
[2018-06-20] MEDS: Atorvastatin Calcium 10 MG TAB PO SCH (20:45)
[2018-06-20] MEDS ORDERED: Metoclopramide HCl 10 MG/2 ML VIAL ONE (20:51)
[2018-06-20] MEDS ORDERED: Dexamethasone 20 MG/5 ML VIAL ONE (20:51)
[2018-06-20] MEDS ORDERED: Glycopyrrolate 0.2 MG/ML 5 ML SYRINGE ONE (20:51)
[2018-06-20] MEDS ORDERED: Ondansetron PF 4 MG/2 ML Vial ONE (20:51)
[2018-06-20] MEDS ORDERED: Lidocaine 1% PF 5 ML VIAL ONE (20:51)
--- NOTE | 2018-06-20 22:47 | OP ---
DATE OF PROCEDURE: 06/20/2018 SERVICE: Pulmonary Medicine. PROCEDURES PERFORMED: Fiberoptic bronchoscopy with; 1. Visual airway inspection. 2. Endobronchial brushing of the right lower lobe. 3. Endobronchial wash from the right lower lobe. 4. Endobronchial biopsy from the right lower lobe. PREPROCEDURE DIAGNOSES: 1. History of breast cancer. 2. Metastatic bone lesions. 3. Pulmonary mass. POSTPROCEDURE DIAGNOSES: 1. History of breast cancer. 2. Multiple metastatic bone lesions. 3. Pulmonary mass. MEDICATIONS USED: For list of medications used during the procedure, please refer to Anesthesia documentation. PREANESTHESIA ASSESSMENT: H and P had been performed. The patient's medications and allergies were reviewed. CONSENT: Informed consent was obtained after discussing the risks, benefits, and rationale for performing the procedure as well as alternative options. DESCRIPTION OF PROCEDURE: A time-out was performed identifying the correct procedure and patient with name, date of . A diagnostic fiberoptic bronchoscope was introduced through the endotracheal tube. The bronchoscope was advanced into the trachea, where the tracheobronchial tree inspection was carried out with clear identification of the right upper lobe, right middle lobe, right lower lobe, left upper lobe, lingula, and left lower lobe. Anatomy was mostly normal to the segmental level. That being said, after the right middle lobe, the superior segment of the right lower lobe was identified. We traveled distal to that, where the medial basal segment was identified. The anterior, lateral, and posterior segments could not be entered with the bronchoscope. The anterior segment had extrinsic compression preventing anything from getting through. The lateral and posterior segments of the right lower lobe had very abnormal mucosal findings and was quite friable. A discrete fungating lesion could not be identified. Multiple biopsies, washing, and endobronchial brushings were taken from these segments. The brush and biopsy forceps were able to pass distally into the anterior, lateral, and posterior segments of the right lower lobe. Hemostasis was verified and the bronchoscope was subsequently removed from the patient. FINDINGS: 1. Secretions were minimal and thin. 2. Right lower lobe endobronchial disease as identified in the body of this procedure note. SPECIMENS OBTAINED: 1. Endobronchial brushing from the right lower lobe. 2. Washing for cytology from the right lower lobe. 3. Endobronchial biopsies from the right lower lobe. COMPLICATIONS: None. ESTIMATED BLOOD LOSS: 5 mL. FLUOROSCOPY TIME: None. DISPOSITION: The patient will return to our medical unit after she meets criteria in the postanesthesia care unit. Job ID: [id number]
[2018-06-21] MEDS: Levothyroxine Sodium 100 MCG TAB PO SCH (05:31)
[2018-06-21] MEDS: Enoxaparin Sodium 40 MG/0.4 ML SYRINGE SC SCH (08:33)
[2018-06-21] MEDS: Famotidine 20 MG TAB PO SCH ×2 (08:33→20:04)
--- NOTE | 2018-06-21 16:25 | PRG ---
DATE OF SERVICE: 06/21/2018 SUBJECTIVE: The patient was seen and examined at the bedside. She is doing better. She is able to ambulate. There is not much pain. Only, there is some discomfort when she ambulates. OBJECTIVE: VITAL SIGNS: Blood pressure is 115/67, temperature is 98.2, pulse is 65, respiratory rate is 18, O2 saturation 95% on room air. HEENT: Head is atraumatic and normocephalic. Eyes, PERRLA. Sclerae are nonicteric. Oral mucosa is moist. NECK: Supple. LUNGS: Clear. HEART: S1 and S2, normal. No S3. No S4 without any murmur. ABDOMEN: Soft, nontender, nondistended. EXTREMITIES: No clubbing, cyanosis, or edema. NEUROLOGIC: She is alert and oriented x4. There is no any motor or sensory deficits present. Cranial nerves are intact. The right hip area is dressed. LABORATORY DATA: Labs, none today. IMPRESSION: 1. Pathological fracture of the right femur. 2. Pneumonia. 3. Right lung mass. 4. Metastatic bone lesions. 5. History of breast cancer. 6. Hypothyroidism. 7. Dyslipidemia. PLAN: Dr. Ibarra is planning to come evaluate her and make decision regarding radiation since we were able to obtain thoracic and lumbar spine MRIs. For now, we will continue her antibiotic and PT. Job ID: [id number]
[2018-06-21] MEDS: HYDROcodone/Acetaminophen 10/325 mg Tablet PO PRN (17:36)
--- NOTE | 2018-06-21 18:59 | PRG ---
DATE OF SERVICE: 06/21/2018 SERVICE: Pulmonary Medicine. INTERVAL HISTORY: The patient is doing fine from respiratory standpoint. Breathing comfortably. There has been no interval change to her condition. After the bronchoscopy yesterday, she coughed up a little bit of blood. That is being said, this tapered off. There were no significant fevers. PHYSICAL EXAMINATION: VITAL SIGNS: Afebrile, pulse 65, blood pressure 115/66, respirations 18, and saturation 96% on room air. GENERAL: The patient is awake and alert, in no apparent distress. LUNGS: Decent air entry. There is no prolonged expiratory phase or wheezing appreciated. HEART: Normal rate, regular. ABDOMEN: Soft, nontender, and nondistended. Bowel sounds are positive. MUSCULOSKELETAL: No cyanosis or clubbing. No pitting in the bilateral lower extremities noted. NEUROLOGIC: Grossly nonfocal. IMAGING: MRI of the T-spine demonstrates osseous metastases at T5, T6, and T7, and T11. CT of the L-spine demonstrates osseous metastasis involving the right iliac bone, possible metastatic involvement of the S1 nerve root. ASSESSMENT: 1. History of breast cancer. 2. Pulmonary mass, status post endobronchial biopsy. 3. Widely metastatic skeletal disease, status post bone biopsy. DISCUSSION AND PLAN: We are awaiting the results of the pathology. At this point, she has no further requirements for inpatient Pulmonary Critical Care opinion. I will follow, intermittently if she remains in-house. If any procedures are needed before Friday, please give us a phone call. Job ID: [id number]
[2018-06-21] MEDS: Atorvastatin Calcium 10 MG TAB PO SCH (20:04)
[2018-06-22] MEDS: Levothyroxine Sodium 100 MCG TAB PO SCH (05:10)
[2018-06-22] MEDS: Famotidine 20 MG TAB PO SCH (08:55)
[2018-06-22] MEDS: Enoxaparin Sodium 40 MG/0.4 ML SYRINGE SC SCH (08:55)
--- NOTE | 2018-06-22 10:57 | PRG ---
DATE OF SERVICE: 06/22/2018 SUBJECTIVE: Ms. Guerra was seen today. She is day #3 postoperative from undergoing an intramedullary maria teresa placement for lytic lesion in the right femur. She is doing well from that perspective. She is not reported any pain today. She is ambulating with use of a walker. She anticipates being discharged soon. She has no shortness of breath and voices no new complaint. She did undergo bronchoscopy, which revealed some narrowing in the right lower lobe extrinsically. Biopsies and brushings are pending from that. Pathologies also pending from her right femur. OBJECTIVE: VITAL SIGNS: Height 5 feet and 7 inches, weight 153 pounds. Blood pressure 105/60, pulse is 64, respirations are 18, temperature is 98.5, and O2 saturation is 96%. GENERAL: She is alert and oriented and in no apparent distress. She is well-developed and well-nourished. Karnofsky performance status is 70%. NECK: Supple without cervical or supraclavicular adenopathy. LUNGS: Breathing nonlabored. Clear to auscultation. HEART: Regular rate and rhythm without murmur. EXTREMITIES: No lower extremity edema. ABDOMEN: Soft, nontender, and nondistended without mass or hepatosplenomegaly. NEUROLOGIC: She moves all 4 extremities well. Neurologic is unchanged. Gait was not tested. LABORATORY DATA: CBC on 06/20/2018 revealed white blood cell count of 6500 with hemoglobin of 11.5, hematocrit of 33.5, and platelet count of 223,000. Pathology is currently pending. RADIOLOGIC STUDIES: MRI of the thoracic and lumbar spine were performed over the weekend and these were personally reviewed. She does have metastatic disease in the T5 and T6 area. However, the cord appears not threatened at this point in that area. At T1 vertebral body, she has metastatic disease with some spinal canal narrowing. There still appears to be good space around the cord, but there is definitely encroachment in the epidural space and narrowing of the spinal canal in this area. MRI of the lumbar spine shows disease of sacrum, but the nerve roots appear reasonable. ASSESSMENT: Ms. 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 She also appears to have lung metastasis. The question is whether this is a recurrence of previously known breast cancer or whether this represents a new primary. Pathology will help us to determine that, but that is currently pending. PLAN: I do think we need to begin radiation therapy in the reasonable near future to the T11 area because of the spinal canal encroachment. She has no signs or symptoms of spinal cord compression, and I do not think she is likely to compress her spinal cord in the next several days or several weeks; therefore, this is not an emergency, but I would like to begin radiation therapy to this area fairly soon. I would like to think the pathology before we start the radiation. I did recommend radiation to the T11 vertebral body. The logistics of radiation as well as benefits and risks of treatment were discussed. Side effects would include, but not be limited to skin reaction, fatigue, lower blood count, nausea, vomiting, possible esophagitis, and small risk of damage to any structure, which receives radiation therapy. Time was taken to answer all of her questions regarding radiation. She is agreeable to proceed with radiation in that area. She will need radiation to the right femur also. However, she will need several weeks of heeling from her surgery before we can begin that. In the interim, my plan is to begin the radiation therapy to the T11 area. Likely, she will need some short of systemic chemotherapy after radiation is completed and that will be done through Dr. Perez. I have given her appointment to see me as an outpatient at 1 o'clock on Friday, June 24, 2018. From my perspective, she would be able to be discharged and we will proceed with treatment as an outpatient. Job ID: [id number]
[2018-06-22 12:16] VITALS: BP 109/66; TEMP 98.4
--- NOTE | 2018-06-23 02:48 | DIS ---
DATE OF ADMISSION: 06/17/2018 DATE OF DISCHARGE: 06/22/2018 DIAGNOSES AT THE TIME OF DISCHARGE: 1. Pathological fracture of the right femur, status post intramedullary nailing per Dr. Connor. 2. Pneumonia. 3. Right lung mass, status post bronchoscopy and biopsy. 4. Metastatic bone lesions. 5. History of breast cancer. 6. Hypothyroidism. 7. Dyslipidemia. CONSULTANTS: 1. Yong Connor MD, Orthopedic Service. 2. Cuauhtemoc Ibarra MD, Radiation Oncology. 3. Andrew Huffman MD, Pulmonary/Critical Care. 4. Ramu Cool MD, Oncology Service. IMAGIN. Chest x-ray done on June 17, 2018, no evidence of acute cardiopulmonary disease. 2. X-ray of the femur showed no evidence of acute fracture or dislocation but based on the previous x-ray obtained in the outpatient facility, she had a fracture of the right femur. 3. Bone scan showed osseous metastatic disease involving the thoracic spine, pelvis, left hip, and left zygomatic arch. 4. X-ray of the femur showed segmental imaging of the right femur revealing placement of intramedullary maria teresa with proximal and distal screw fixation. This is post-op x-ray. 5. Lumbar spine MRI showed osseous metastasis involving the sacrum and right iliac bone. There was mild narrowing of the right subarticular zone at the upper aspect of S1. There was partial obstruction of the transversing right S1 nerve root before exiting the right S1 neural foramen. Overall, sacrum and neural foramina were patent and there was no evidence of high-grade obstruction of the sacral plexus. MRI of the thoracic spine showed, 1. Osseous metastasis at T5, T6, and T7. There was not any canal compromise. 2. Osseous metastasis at T11 with moderate central canal stenosis secondary to anterior and posterior extension of tumor along the anterior and posterior epidural margins. There was not any significant abnormality within the thoracic cord. There was consolidation in both lower lobes. PROCEDURES: 1. Right femur intramedullary nail. 2. Right femur metastatic lesion biopsy. 3. Fiberoptic bronchoscopy with endobronchial brushing of the right lower lobe and bronchial wash from the right lower lobe and endobronchial biopsy from the right lower lobe. HOSPITAL COURSE: The patient is a 57-year-old female who fell recently on her right hip and sustained contusion of her hip, who presented to [facility] for evaluation of her right hip pain. The x-ray of her hip did not show fracture of the femur, but showed lytic lesion. The patient was sent to the hospital per request of Dr. Perez, the patient's oncologist, for further evaluation and diagnostic workup of her possible metastatic disease. Orthopedic surgeon, Dr. Connor, was consulted and she was taken to the operating room and she had intertrochanteric nail placed in the right femur and she had a biopsy done of the lytic lesion of the right femur. The patient did very well postop. The patient had metastatic workup done with CT of the chest, abdomen and pelvis, which showed, 1. Large right lower lobe mass concerning for primary lung carcinoma, although it was osseous metastatic disease involving the right ilium and sacrum with subtle pathologic fracture of the right sacrum, zone 2 of S1. 2. Metastatic focal involvement of the T11 vertebral body with anterior epidural extension. 3. Osseous metastatic disease involving the posterior element of T5 and T6 with likely epidural extension of tumor. Dr. Huffman saw the patient. He scheduled her for bronchoscopy, which was done the next day with brushing and biopsy of the right lower lobe. Her MRI showed significant metastatic disease to T5, T6, T7, T11 along with involvement of sacrum and right iliac bone, also because of suspicious of pneumonia secondary to tumor obstructing bronchus. The patient was placed on levofloxacin 750 mg IV piggyback daily. She completed 3 doses of this regimen. Clinically, she is doing very well. She is able to ambulate. She does not have much complaints to offer. OBJECTIVE: VITAL SIGNS: Blood pressure 111/64, pulse is 74, temperature 98.5, and O2 saturation is 93% on room air. She was examined and evaluated before she was discharged. She was discharged home. She will take levofloxacin 750 mg once a day for additional 2 days. She will continue her atorvastatin 10 mg at bedtime and levothyroxine, Synthroid 100 mcg once a day. She will take Tylenol p.r.n. for her pain. I do not give her any stronger pain medications since she did not require basically any pain management after the surgery. She will follow up with Dr. Connor in [address] Ibarra, radiation oncologist, reviewed MRIs and he decided to radiate her spine for the metastatic lesion she has in the spine and she has an appointment with him next Friday at 1:00 p.m. Also, she will follow up with Dr. Canales, who is her primary care physician in 1 week for the followup visit. Job ID: [id number]
== END 2018-06-22 13:10 | disposition home or self-care (01) | DRG 477 ==
LOC: ERS 17:06 → ONC 18:43 → MERGE 18:43 → OBSVTOIN 18:43 → SURG A 06-19 08:57 → SURG B 06-19 10:22
PROVIDERS: ADMIT Internal Medicine; ATTEND Internal Medicine
PROC: 0QB60ZX Excision of Right Upper Femur, Open Approach, Diagnostic (ICD-10-PCS; principal; 2018-06-19)
PROC: 0QH606Z Insertion of Intramedullary Internal Fixation Device into Right Upper Femur, Open Approach (ICD-10-PCS; 2018-06-19)
PROC: 0BBF8ZX Excision of Right Lower Lung Lobe, Via Natural or Artificial Opening Endoscopic, Diagnostic (ICD-10-PCS; 2018-06-20)
PROC: 0BDF8ZX Extraction of Right Lower Lung Lobe, Via Natural or Artificial Opening Endoscopic, Diagnostic (ICD-10-PCS; 2018-06-20)
DX: C79.51 Secondary malignant neoplasm of bone (principal); J18.9 Pneumonia, unspecified organism; M84.451A Pathological fracture, right femur, initial encounter for fracture; C78.01 Secondary malignant neoplasm of right lung; M84.454A Pathological fracture, pelvis, initial encounter for fracture; R91.8 Other nonspecific abnormal finding of lung field; Z85.3 Personal history of malignant neoplasm of breast; E03.9 Hypothyroidism, unspecified; E78.5 Hyperlipidemia, unspecified
CPT/HCPCS: 36415; 71045; 71260; 72157; 72158; 74177; 76001; 78306; 80048; 80053; 82248; 82378; 83615; 83735; 84100; 84550; 85025; 86300; 88104; 88112; 88307; 88311; 90471; 90686; A4216; A9503; C1713; C1769; G0008; G8978-GP-CI; G8979-GP-CI; G8980-GP-CI; J0171; J1100; J1650; J2001; J2405; J2704; J2765; J3010; J7620

== ENCOUNTER 2018-06-29 15:18 | Outpatient (CLI) | payer BC | END 2018-06-29 15:19 | disposition home or self-care (01) | LOC: BICMAMMO 15:18 | PROVIDERS: ATTEND Internal Medicine Medical Oncology | DX: Z12.31 Encounter for screening mammogram for malignant neoplasm of breast (principal); R92.1 Mammographic calcification found on diagnostic imaging of breast; Z85.3 Personal history of malignant neoplasm of breast; Z98.890 Other specified postprocedural states | CPT/HCPCS: 77063; 77067 ==

== ENCOUNTER 2018-12-14 07:55 | Outpatient (CLI) | payer BC ==
[2018-12-14] MEDS ORDERED: Iopamidol 370 76% 100 ML VIAL ONE (10:57)
--- NOTE | 2018-12-14 11:05 | CT ---
CT CHEST WITH IV CONTRAST CT ABDOMEN WITH IV CONTRAST CT PELVIS WITH IV CONTRAST: HISTORY: Breast cancer with metastatic disease. COMPARISON: CT scan of chest, abdomen, and pelvis dated 06/18/2018. CORRELATION: Bone scan of 06/18/2018 and MRI of thoracic and lumbar spine of 06/20/2018. FINDINGS: There has been interval reduction in the size of the right lower lobe lung mass currently measuring a bout 2.5 cm. No new lung masses are seen. No mediastinal, hilar, or axillary lymphadenopathy is see n. Postop changes in the left axilla are again noted. No pleural or pericardial effusions are ident ified. The liver, spleen, pancreas, adrenal glands, and kidneys are normal. No calcified gallstones are see n. No free air, free fluid, or lymphadenopathy is seen in the abdomen or pelvis. A uterus is presen t. Evidence of osseous metastatic disease in the thoracic spine, right sacrum, and right iliac bone are again noted. There are postop changes and metallic hardware in the right femur which are new since t he last exam. IMPRESSION: Interval improvement since 06/18/2018. POS: OFF
== END 2018-12-14 07:56 | disposition home or self-care (01) ==
LOC: BICCT 07:55
PROVIDERS: ATTEND Internal Medicine Medical Oncology
DX: C50.919 Malignant neoplasm of unspecified site of unspecified female breast (principal); C79.51 Secondary malignant neoplasm of bone
CPT/HCPCS: 71260; 74177; Q9967

== ENCOUNTER 2019-06-11 09:25 | Outpatient (CLI) | payer OTHER ==
--- NOTE | 2019-06-11 10:31 | CT ---
CT Chest Abd Pelvis W Con History: Breast cancer. Comparison: CT exam November 2018 Findings: Right lower lobe mass has decreased in size measuring 1.7 cm in AP dimension, using the shayna e reference as the prior exam, which had measured 2.5 cm. No new suspicious pulmonary nodule. No pneumothorax. No effusion. Pulmonary trunk is not dilated. The aortic contour is nonaneurysmal. No pericardial fluid. No axillary or internal mammary adenopathy. Left axillary surgical clips. There are no dilated loops of large or small bowel. No free intraperitoneal gas or fluid. No hydronep hrosis. Adrenal glands are unremarkable. The liver is without a metastatic focus. Gallbladder is normal. Pancreas is unremarkable. No retroperitoneal periaortic adenopathy. Spleen is unremarkable. Unchanged appearance of the peripheral sclerosis of the T11 vertebral body, lamina, pedicle, and luo sverse process metastasis. No definite anterior vertebral extension of soft tissue mass. The sclerosis is extending to the spinous process. Similar appearance of the mixed lytic and sclerotic sa cral and iliac metastatic bone response. No evidence for soft tissue mass extending outside the cortex. Impression: Partial response with size decrease right lower lobe lung metastatic focus as described.
[2019-06-11] MEDS ORDERED: Iopamidol 370 76% 100 ML VIAL ONE (11:32)
--- NOTE | 2019-06-11 14:02 | NM ---
WHOLE BODY BONE SCAN: HISTORY: Metastatic breast cancer. RADIOPHARMACEUTICAL: 31.7 mCi technetium 99m MDP injected intravenously. COMPARISON: Whole body bone scan dated 06/18/2018. CORRELATION: None. FINDINGS: The activity seen within the T5, T6 and T11 vertebral levels is slightly less prominent. Activity wit hin the right aspect of the sacrum and the S1 vertebral level also appears slightly less prominent. The activity previously seen within the right superior acetabular region is less prominent appearing. The activity within the lesion involving the proximal right femoral shaft also demonstrates decreased uptake. Focal uptake within the left zygomatic arch region is slightly less prominent. No n ew osseous metastatic disease demonstrated. IMPRESSION: Slightly less radiotracer accumulation seen within the osseous metastatic disease of the thoracic spi ne, sacrum, right acetabulum and right proximal femur. There is also less uptake seen involving the focal lesion in the region of the left zygomatic arch. Transcribed Date/Time: 06/11/2019 2:33 PM
== END 2019-06-11 09:26 | disposition home or self-care (01) ==
LOC: CT 09:25
PROVIDERS: ATTEND Internal Medicine Medical Oncology
DX: C50.919 Malignant neoplasm of unspecified site of unspecified female breast (principal); C79.51 Secondary malignant neoplasm of bone; C78.00 Secondary malignant neoplasm of unspecified lung
CPT/HCPCS: 71260; 74177; 78306; A9503; Q9967

== ENCOUNTER 2019-07-19 14:58 | Outpatient (CLI) | payer OTHER ==
--- NOTE | 2019-07-19 15:37 | RAD ---
EXAM: Chest 2 views: HISTORY: Left metastatic breast cancer COMPARISON: None. FINDINGS: There is a normal-sized cardiomediastinal silhouette. There is no evidence of consolidation, mass, or pleural effusion. The bones are unremarkable. IMPRESSION: No evidence of acute cardiopulmonary disease
--- NOTE | 2019-07-19 16:10 | MMO ---
Bilateral MAMMO Bilat Screen [facility]. CLINICAL HISTORY: Patient is 58 years old and is seen for screening. The patient has no family history of breast cancer. 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 The patient has a history of left Excisional Biopsy in 2002 - MALIGNANCY and right Excisional Biopsy in 2003 - Benign. VIEWS: The views performed were: bilateral craniocaudal with tomosynthesis and bilateral mediolateral oblique with tomosynthesis. FILMS COMPARED: The present examination has been compared to prior imaging studies performed at [facility] on 05/05/2015, 05/06/2016, 06/25/2017 and 06/29/2018. This study has been interpreted with the assistance of computer-aided detection. MAMMOGRAM FINDINGS: There are scattered fibroglandular densities. There are stable post operative changes seen in both breasts. There are no suspicious masses, suspicious calcifications, or new areas of architectural distortion. IMPRESSION: THERE IS NO MAMMOGRAPHIC EVIDENCE OF MALIGNANCY. A ROUTINE FOLLOW-UP MAMMOGRAM IN 1 YEAR IS RECOMMENDED. THE RESULTS OF THIS EXAM WERE SENT TO THE PATIENT. ACR BI-RADS Category 2 - Benign finding MAMMOGRAPHY NOTE: 1. A negative mammogram report should not delay a biopsy if a dominant of clinically suspicious mass is present. 2. Approximately 10% to 15% of breast cancers are not detected by mammography. 3. Adenosis and dense breasts may obscure an underlying neoplasm. Reported by: VICENTE BENITEZ MD Electonically Signed: [id number]
== END 2019-07-19 14:59 | disposition home or self-care (01) ==
LOC: BICMAMMO 14:58
PROVIDERS: ATTEND Internal Medicine Medical Oncology
DX: Z12.31 Encounter for screening mammogram for malignant neoplasm of breast (principal); C78.00 Secondary malignant neoplasm of unspecified lung; C50.912 Malignant neoplasm of unspecified site of left female breast; Z85.3 Personal history of malignant neoplasm of breast; Z91.89 Other specified personal risk factors, not elsewhere classified
CPT/HCPCS: 71046; 77063; 77067

== ENCOUNTER 2020-03-20 08:25 | Outpatient (CLI) | payer OTHER ==
[2020-03-20] MEDS ORDERED: Iopamidol-370 76% 500 ML 1 ML ONE (08:50)
--- NOTE | 2020-03-20 11:27 | CT ---
CT CHEST WITH CONTRAST: INDICATION: Breast cancer with lung mets. FINDINGS: Comparison is made to prior CT chest of 06/11/2019 and 12/14/2018. FINDINGS: The right lower lobe mass which has been previously described is again seen. This mass density brannon nues to decrease in size. AP dimension today is recorded at approximately 1.2 cm with previous AP di mension recorded at 1.7 cm in a similar plane. There is associated stranding with this mass density which appears stable. No other pulmonary mass or nodule. Subtle ground-glass haziness in the left lower lobe is a stable f inding. No effusion. Mild cardiomegaly. Mediastinum unremarkable. Review of osseous structures showed abnormal blotchy sclerosis involving the posterior elements at T4 and T5 suggesting metastatic disease. Similar findings were present on the prior study without sign ificant change. The abnormal sclerosis and patchy areas of lucency involving the T11 vertebra and extending into the pedicles and posterior elements described previously are again seen and also appear stable. Images t hrough the upper abdomen are unremarkable. The visualized, liver, spleen, and pancreas are unremarka ble. There are nonspecific lymph nodes in the right axilla with at least 1 lymph node measuring 1.8 cm AP dimension in the axial plane. This is a stable finding. There are surgical clips in the left axilla without evidence of left axillary adenopathy. IMPRESSION: 1. The right lower lobe lung mass continues to decrease in size as noted above. 2. The osseous findings appear stable as described above. 3. Nonspecific right axillary adenopathy is stable. POS: OFF
== END 2020-03-20 08:26 | disposition home or self-care (01) ==
LOC: BICCT 08:25
PROVIDERS: ATTEND Internal Medicine Medical Oncology
DX: C50.919 Malignant neoplasm of unspecified site of unspecified female breast (principal); C78.00 Secondary malignant neoplasm of unspecified lung; C79.51 Secondary malignant neoplasm of bone; R91.8 Other nonspecific abnormal finding of lung field; R59.0 Localized enlarged lymph nodes; R59.9 Enlarged lymph nodes, unspecified
CPT/HCPCS: 71260; Q9967

== ENCOUNTER 2020-08-16 15:25 | Outpatient (CLI) | payer BC ==
--- NOTE | 2020-08-16 15:59 | MMO ---
Bilateral MAMMO Bilat Screen [facility]DI[facility]DARREL. CLINICAL HISTORY: Patient is 59 years old and is seen for screening. The patient has no family history of breast cancer. 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 The patient has a history of left Excisional Biopsy in 2002 - MALIGNANCY and right Excisional Biopsy in 2003 - Benign. VIEWS: The views performed were: bilateral craniocaudal with tomosynthesis; bilateral mediolateral oblique with tomosynthesis; and bilateral exaggerated craniocaudal. FILMS COMPARED: The present examination has been compared to prior imaging studies performed at [facility] on 05/06/2016, 06/25/2017, 06/29/2018 and 07/19/2019. This study has been interpreted with the assistance of computer-aided detection. MAMMOGRAM FINDINGS: There are scattered fibroglandular densities. There are stable BILATERAL post-operative changes. There are no suspicious masses, suspicious calcifications, or new areas of architectural distortion. IMPRESSION: THERE IS NO MAMMOGRAPHIC EVIDENCE OF MALIGNANCY. A ROUTINE FOLLOW-UP MAMMOGRAM IN 1 YEAR IS RECOMMENDED. THE RESULTS OF THIS EXAM WERE SENT TO THE PATIENT. ACR BI-RADS Category 2 - Benign finding MAMMOGRAPHY NOTE: 1. A negative mammogram report should not delay a biopsy if a dominant of clinically suspicious mass is present. 2. Approximately 10% to 15% of breast cancers are not detected by mammography. 3. Adenosis and dense breasts may obscure an underlying neoplasm. Reported by: BERTIN HEATH MD Electonically Signed: [id number]
== END 2020-08-16 15:26 | disposition home or self-care (01) ==
LOC: BICMAMMO 15:25
PROVIDERS: ATTEND Internal Medicine Medical Oncology
DX: Z12.31 Encounter for screening mammogram for malignant neoplasm of breast (principal); Z85.3 Personal history of malignant neoplasm of breast; Z91.89 Other specified personal risk factors, not elsewhere classified
CPT/HCPCS: 77063; 77067

== ENCOUNTER 2020-11-01 10:09 | Outpatient (CLI) | payer BC ==
[2020-11-01] MEDS ORDERED: Iopamidol 370 76% 100 ML VIAL ONE (10:11)
== END 2020-11-01 10:10 | disposition home or self-care (01) ==
LOC: CT 10:09
PROVIDERS: ATTEND Internal Medicine Medical Oncology
DX: C50.812 Malignant neoplasm of overlapping sites of left female breast (principal); C79.51 Secondary malignant neoplasm of bone; R59.0 Localized enlarged lymph nodes
CPT/HCPCS: 71260; 78306; A9503; Q9967

== ENCOUNTER 2021-05-10 08:11 | Outpatient (CLI) | payer BC | END 2021-05-10 08:12 | disposition home or self-care (01) | LOC: CT 08:11 | PROVIDERS: ATTEND Internal Medicine Medical Oncology | DX: C79.51 Secondary malignant neoplasm of bone (principal); C50.919 Malignant neoplasm of unspecified site of unspecified female breast | CPT/HCPCS: 71260; 78306; 82565; A9503 ==

== ENCOUNTER 2021-11-08 09:19 | Outpatient (CLI) | payer BC | END 2021-11-08 09:20 | disposition home or self-care (01) | LOC: CT 09:19 | PROVIDERS: ATTEND Internal Medicine Medical Oncology | DX: C50.919 Malignant neoplasm of unspecified site of unspecified female breast (principal); C79.51 Secondary malignant neoplasm of bone; C78.00 Secondary malignant neoplasm of unspecified lung; D70.1 Agranulocytosis secondary to cancer chemotherapy | CPT/HCPCS: 71260; 78306; 82565; A9503 ==

== ENCOUNTER 2021-11-08 10:33 | Outpatient (CLI) | payer BC | END 2021-11-08 10:34 | disposition home or self-care (01) | LOC: BICMAMMO 10:33 | PROVIDERS: ATTEND Internal Medicine Medical Oncology | DX: Z12.31 Encounter for screening mammogram for malignant neoplasm of breast (principal); Z85.3 Personal history of malignant neoplasm of breast | CPT/HCPCS: 77063; 77067 ==

== ENCOUNTER 2022-07-11 08:00 | Outpatient (CLI) | payer BC ==
[2022-07-11] MEDS ORDERED: Iopamidol 370 76% 100 ML VIAL ONE (15:02)
== END 2022-07-11 08:01 | disposition home or self-care (01) ==
LOC: CT 08:00
PROVIDERS: ATTEND Internal Medicine Medical Oncology
DX: C50.812 Malignant neoplasm of overlapping sites of left female breast (principal); C79.51 Secondary malignant neoplasm of bone; D70.1 Agranulocytosis secondary to cancer chemotherapy
CPT/HCPCS: 71260; 78306; 82565; A9503; Q9967